=== PATIENT | male | born 1970 | race African-American/Black ===

== ENCOUNTER 2016-08-27 15:00 | Inpatient (IN) | payer OTHER ==
--- NOTE | ~2016-08-27 | PN ---
Unit #: [id number] #: [id number] Patient: MATTHIEU CARRIZALES [id number] [facility] [address] [place] [address] [id number] MR#: [id number] NAME: MATTHIEU CARRIZALES ROOM: 81 Age: 45 Sex: M Admission Date: 08/27/2016 : 1970 Attending Physician: Ari Ortiz M.D. Admitting Physician: Ari Ortiz M.D. Primary Care Physician: Primary Care Physician Tammy NICOLE NOTES DATE OF SERVICE: 08/28/2016 DISCUSSION Mr. Del Valle is a 45-year-old male, seen on 08/28/2016. The patient interviewed, chart reviewed, and obtained information from nursing staff. The patient compliant and cooperative. Mood is sad, dysphoric, flat affect, and guarded, but no thoughts of harming self or others. The patient is able to contract for safety. REVIEW OF SYSTEMS Complete review of systems unremarkable. MENTAL STATUS EXAMINATION General appearance, the patient dressed casually. Attention span and concentration, fair. Oriented in place and person. Mood and affect, sad and dysphoric. Speech, monotone. Thought process, concrete. The patient denied any thoughts of harming self or others. Recent and remote memory, poor. Insight and judgment, poor. DIAGNOSES Mood disorder, not otherwise specified; rule out major depressive disorder; and opioid use disorder, severe. ASSESSMENT AND PLAN Advised to continue with current medication and therapeutic protocol. If needed, consider further adjustment of medication. Dictated by... Damián Horta/claribel TD: 08/29/2016 17:08 JOB #: [id number] Unit #: [id number] #: [id number] Patient: MATTHIEU CARRIZALES [facility] PROGRESS NOTES Page 1 of 1 X Ari Ortiz MD PROGRESS NOTE
--- NOTE | ~2016-08-27 | HP ---
Unit #: [id number] #: [id number] Patient: MATTHIEU CARRIZALES [id number] [facility] [address] [place] [address] [id number] I MR#: [id number] NAME: MATTHIEU CARRIZALES ROOM: P181 Age: 45 Sex: M Admission Date: 08/27/2016 : 1970 Attending Physician: Ari Ortiz M.D. Admitting Physician: Ari Ortiz M.D. Primary Care Physician: Primary Care Physician No HISTORY AND PHYSICAL HISTORY OF PRESENT ILLNESS Matthieu is a 45-year-old male admitted on 08/28/2016 to [facility] for detox from heroin. PAST MEDICAL HISTORY None. PAST SURGICAL HISTORY None. SOCIAL HISTORY He smokes five cigarettes daily. No alcohol use. Does report daily use of heroin. He is currently single and living at [facility]. Also, is grieving the of his mother recently. FAMILY HISTORY Noncontributory. REVIEW OF SYSTEMS CONSTITUTIONAL: No fever or chills. HEENT: Denies any sore throat, ear pain or runny nose. CARDIOVASCULAR: Denies chest pain, irregular heart rhythm or palpitations. CHEST: Denies shortness of breath or cough. No hemoptysis. GASTROINTESTINAL: Denies nausea, vomiting, diarrhea or chronic constipation. ENDOCRINE: Denies history of increased thirst or urination. No recent significant weight loss or gain. GENITOURINARY: Denies dysuria, frequency, or hematuria. SKIN: Denies any rashes. HEMATOLOGIC: Denies history of increased bleeding or bruising. MUSCULOSKELETAL: Denies any hot, swollen joints. No generalized muscle pain. NEUROLOGIC: Denies problems with vision or speech. No frequent, severe headaches. No numbness, tingling or weakness in any extremities. Denies loss of bladder or bowel control. CURRENT MEDICATIONS None. ALLERGIES None. Unit #: [id number] #: [id number] Patient: MATTHIEU CARRIZALES PHYSICAL EXAMINATION GENERAL: Alert, oriented, in no acute distress. VITAL SIGNS: Blood pressure 113/75, heart rate 70. HEIGHT: 5 foot 10 inches. WEIGHT: 122 pounds. SKIN: Warm and dry without rash or lesion. HEENT: Normocephalic. TMs not viewed. Oral and nasal passages clear. Conjunctivae clear. PERRLA. EOMs intact. NECK: Supple without lymphadenopathy or thyromegaly. HEART: Regular rate and rhythm without murmur. LUNGS: Clear. ABDOMEN: Soft, nontender, without masses or hepatosplenomegaly. : Not done. EXTREMITIES: No evidence of cyanosis, clubbing or edema. Moves all without focal deficit. NEUROLOGICAL: Grossly within normal limits. Cranial Nerves: II: Visual woodruff are intact. III, IV AND : Extraocular movements are intact. Pupils are equal, round and reactive to light. V: Facial sensation is grossly normal. VII: Facial movements and expression are normal. VIII: Auditory acuity grossly intact. IX, X: Uvula is midline. Phonation is normal. XI: Patient shrugs shoulders and turns head normally. XII: Tongue protrudes in the midline. Sensory and Motor Function: Sensory and motor sensation is grossly normal. Motor: moves all extremities well. Coordination: Gait is normal. Deep Tendon Reflexes: Intact. IMPRESSION Psychiatric admission. RECOMMENDATIONS Psychiatric, per psychiatrist. MEDICAL: I see no contraindications to participating in facility's activities. MEDICAL PROGNOSIS Good. MEDICAL CONDITION Stable. Dictated by... Andreia Chan/orlando TD: 08/28/2016 23:33 JOB #: [id number] Unit #: [id number] #: [id number] Patient: MATTHIEU CARRIZALES HISTORY AND PHYSICAL Page 1 of 1 X PAOLO SWIFT APRN X HISTORY AND PHYSICAL
--- NOTE | ~2016-08-27 | PA ---
Unit #: [id number] #: [id number] Patient: MATTHIEU CARRIZALES [id number] [facility] [address] [place] [address] [id number] I MR#: [id number] NAME: MATTHIEU CARRIZALES ROOM: [facility] Age: 45 Sex: M Admission Date: 08/27/2016 : 1970 Date of Assessment: 08/28/2016 Attending Physician: Ari Ortiz M.D. Admitting Physician: Ari Ortiz M.D. Primary Care Physician: Primary Care Physician No PSYCHIATRIC ASSESSMENT INFORMANTS The patient reliability, fair informant and chart reliability, good. CHIEF COMPLAINT Detox and suicidal ideation. HISTORY OF PRESENT ILLNESS Mr. Del Valle is a 45-year-old male, presented with suicidal ideation with a plan to overdose using heroin. The patient reports that he has used 1 g of heroin daily, trying to kill himself due to his mom's recent . The patient also reported that he is severely depressed. The patient making comments about using a gun, but no longer have access to gun. The patient denied any homicidal ideation. Reports he has been using drugs and alcohol since age 10. Denied any delusion or hallucination. Currently, homeless. Currently, staying at [facility]. The patient reported tobacco use, age of onset 40; alcohol, age of onset 18; marijuana, age of onset 11; crack cocaine, age of onset 21; and opioid, age of onset 30. The patient reported longest period of sobriety 7 years. Last period of sobriety in 2001. History of blackout and withdrawal symptoms. The patient needing inpatient admission at this time for psychiatric stabilization. PAST PSYCHIATRIC HISTORY Unremarkable for any history of any previous treatment. FAMILY HISTORY AND SOCIAL HISTORY The patient currently homeless. Poor support system. No history of abuse. MEDICAL HISTORY Unremarkable for any chronic medical illness. Musculoskeletal; muscle strength and tone, no atrophy or abnormal movement. Gait normal. MEDICATION HISTORY None. ALLERGIES No known drug allergies. SUBSTANCE ABUSE HISTORY Please see above. REVIEW OF SYSTEMS HEENT: Eyes, clear. Ears, nose, mouth, and throat; clear. Unit #: [id number] #: [id number] Patient: MATTHIEU CARRIZALES CARDIOVASCULAR: Unremarkable. RESPIRATORY: Unremarkable. GI: Unremarkable. : Unremarkable. SKIN: Unremarkable. LYMPH NODE: Unremarkable. NEUROLOGIC: Unremarkable. ENDOCRINE: Unremarkable. HEMATOLOGIC: Unremarkable. ALLERGIC/IMMUNOLOGIC: Unremarkable. MUSCULOSKELETAL: Muscle strength and tone, no atrophy or abnormal movement. Gait normal. MENTAL STATUS EXAMINATION CONSTITUTIONAL: Measurement of vital signs; temperature 98.3, heart rate 48, respiratory rate 20, and blood pressure 104/59. Height 5 feet 10 inches and weight 172 pounds. GENERAL APPEARANCE: The patient dressed casually. No facial deformity noted. MUSCULOSKELETAL: Please see above. PSYCHIATRIC EXAMINATION Description of speech; regular rate, normal volume, normal articulation, and coherent. Description of thought process, goal directed. Description of association, intact. Description of abnormal psychotic thinking; the patient denied any hallucination or delusions, but depression and suicidal ideation, but able to contract for safety. Denied any homicidal ideation. Description of the patient's judgment: Concerning everyday activity, poor. Social situation, poor. Concerning psychiatric condition, poor. Complete mental status examination; oriented in time, place, and person. Recent and remote memory, fair. Attention span and concentration, fair. Language, able to name object and repeat phrases. Fund of knowledge, aware of current event and passive vocabulary intact. Mood and affect, sad and dysphoric. Insight and judgment, fair to poor. ASSETS AND LIABILITIES Assets, the patient is articulate and able to take care of his ADL. Liability, history of depression and substance abuse. ADMITTING DIAGNOSES Psychiatric: Major depressive disorder, recurrent, severe, F33.2 and opioid use disorder, severe, F11.20. Secondary diagnosis: Deferred. Medical diagnosis: None. Stressors: Psychosocial stressors. PSYCHIATRIC PLAN AND TREATMENT GOAL AND DISCHARGE PLAN 1. Advised to admit the patient on the inpatient unit. Provide safe, supportive, and structured environment. 2. Ordered labs; CBC, CMP, UA, and UDS. 3. Detox protocol and detox monitoring. 4. SP1 precaution. 5. Plan to consider medication such as SSRI if needed. The patient to attend all the programing on the inpatient unit, group therapy, individual Unit #: [id number] #: [id number] Patient: SOFIE,MATTHIEU therapy, and chemical dependency group. TREATMENT GOAL To attain euthymic mood, gain insight into his problem, and learn coping skills. DISCHARGE PLAN Plan to stabilize the patient and consider followup in outpatient program. ESTIMATED LENGTH OF STAY 3 to 5 days. Dictated by... Damián Horta/claribel TD: 08/28/2016 13:42 JOB #: [id number] PSYCHIATRIC ASSESSMENT Page 1 of 1 X Ari Ortiz MD PSYCHIATRIC ASSESSMENT
--- NOTE | ~2016-08-27 | DS ---
Unit #: [id number] #: [id number] Patient: MATTHIEU CARRIZALES [id number] [facility] [address] [place] [address] [id number] I MR#: [id number] NAME: MATTHIEU CARRIZALES ROOM: [facility] Age: 45 Sex: M Admission Date: 08/27/2016 : 1970 Discharge Date: 08/29/2016 Attending Physician: Ari Ortiz M.D. Primary Care Physician: Primary Care Physician No DISCHARGE SUMMARY REASON FOR ADMISSION Detox, suicidal ideation. DIAGNOSTIC STUDIES LABORATORY RESULTS: Unremarkable except total protein 5.8. HOSPITAL COURSE The patient was admitted to inpatient unit on 08/27/2016 and discharged on 08/29/2016. The patient's urine drug screen was positive for opioids. The patient was treated on the inpatient unit with group therapy, individual therapy, medication management, detox protocol. The patient responded well with the above modalities of treatment. Subsequently, the patient was discharged with a plan to follow up in outpatient program. DISCHARGE MEDICATIONS None. DISCHARGE DIAGNOSES Psychiatric: Major depressive disorder, recurrent, severe, F33.2; opioid use disorder, severe, F11.20. Secondary diagnosis: Deferred. Medical diagnosis: None. Stressors: Psychosocial stressors. DISCHARGE INSTRUCTIONS The patient to follow up in outpatient clinic as per social problems specialist. CONDITION ON DISCHARGE The patient was pleasant and cooperative. Denied any psychotic symptom or any suicidal ideation. PROGNOSIS Guarded. DIET AND ACTIVITY As tolerated. Dictated by... Ari Ortiz M.D. Unit #: [id number] #: [id number] Patient: MATTHIEU CARRIZALES SZC/modl TD: 08/30/2016 07:13 JOB #: [id number] DISCHARGE SUMMARY Page 1 of 1 X Ari Ortiz MD X DISCHARGE SUMMARY
[2016-08-28 12:00] LABS: URINE APPEARANCE CLEAR; URINE BILIRUBIN NEG (NEG); URINE BLOOD NEG (NEG); URINE COLOR YELLOW; URINE GLUCOSE NEG (NEG); URINE KETONE NEG (NEG); URINE LEUKOCYTE ESTERASE NEG (NEG); URINE NITRATE NEG (NEG); URINE PROTEIN NEG (NEG); URINE SPECIFIC GRAVITY 1.015 (1.003-1.035); URINE UROBILINOGEN 0.2 MG/DL (NEG)
[2016-08-28 12:00] LABS: BASOPHIL% 0.7 % (0-2.5); EOSINOPHIL# 0.6 X10e3 (0-0.7); EOSINOPHIL% 10.2 % (0.0-7.0); HEMATOCRIT 42.8 % (38.0-50.0); LYMPHOCYTE# 2.8 X10e3 (1.0-3.5); LYMPHOCYTE% 50.4 % (17.0-45.0); MEAN CELL VOLUME 89.3 FL (83-96); MEAN CORPUSCULAR HEMOGLOBIN 29.2 PG (28-34); MEAN CORPUSCULAR HGB CONC 32.7 g/dL (30-36); MEAN PLATELET VOLUME 8.6 FL (6.5-11.5); MONOCYTE# 0.5 X10e3 (0-1.0); NEUTROPHIL# 1.6 X10e3 (1.5-7.1); NEUTROPHIL% 28.7 % (40-75); RED BLOOD COUNT 4.79 X10e (3.90-5.60); RED CELL DISTRIBUTION WIDTH 12.9 % (11.0-15.5); WHITE BLOOD COUNT 5.5 X10e3 (4.0-10.5)
[2016-08-28 12:01] LABS: DIFF IND YES
[2016-08-28 12:17] LABS: ALBUMIN SERUM 3.4 g/dL (3.5-5.0); BILIRUBIN,TOTAL 1.1 mg/dL (0.2-2.0); CREATININE SERUM 1.2 mg/dL (0.6-1.4); GLOM FILT RATE Estimated 84.2 mL/min (>60); POTASSIUM 4.8 mmol/L (3.5-5.1); PROTEIN TOTAL SERUM 5.8 g/dL (6.0-8.3)
[2016-08-28 12:30] LABS: AMPHETAMINE NEG (NEG); BARBITURATES NEG (NEG); BENZODIAZEPINES NEG (NEG); COCAINE NEG (NEG); MARIJUANA NEG (NEG); OPIATES POS (NEG); TRICYCLIC ANTIDEPRESSANTS NEG (NEG); U METHADONE NEG (NEG)
[2016-08-28 12:53] LABS: PLATELET ESTIMATE NORMAL (NORMAL); RBC NORMAL YES
[2016-08-28 12:54] LABS: PLATELET COUNT 229 X10e3 (140-420); REACTIVE LYMPHS PRESENT
== END 2016-08-29 10:07 | DRG 885 ==
LOC: P1E 16:46
PROVIDERS: Psychiatry & Neurology Psychiatry
PROC: HZ2ZZZZ Detoxification Services for Substance Abuse Treatment (ICD-10-PCS; principal; 2016-08-27)
DX: F33.2 Major depressive disorder, recurrent severe without psychotic features (principal); F11.20 Opioid dependence, uncomplicated; R45.851 Suicidal ideations; Z59.0 Homelessness; F17.210 Nicotine dependence, cigarettes, uncomplicated; F39 Unspecified mood [affective] disorder
CPT/HCPCS: 80053; 80307; 81003; 85025; 86592

== ENCOUNTER 2016-09-26 12:39 | Inpatient (IN) | payer OTHER ==
--- NOTE | ~2016-09-26 | A ---
[facility] Nutrition Therapy DATE: 09/28/16 Patient: MATTHIEU HAMMERBY Physician: FELIX Address: [address] [place] [address] Room/Bed: [address], Zip: [place] [address] Admit Date: 09/26/16 Date of : [birth year] Height: 5 10 Weight: [id number] NUTRITIONAL ASSESSMENT: REASON: UNINTENTIONAL WEIGHT LOSS PATIENT ADMITTED FOR SI AND SUBSTANCE ABUSE PMH: NONE Anthropometrics: HT: 5'10", WT: 164#, BMI: 23.5, %IBW: 99 Labs: 09/27/16- ALL NUTRITIONAL LABS WNL Meds: REMERON, DESYREL Assessment: PATIENT IS A 45 Y/O MALE ADMITTED FOR SI AND SUBSTANCE ABUSE. PATIENT IS CURRENTLY EMPLOYED, IS ESSENTIALLY HOMELESS, SMOKES 1/2 PPD, HAS DAILY HEROIN AND COCAINE USE, AND OCCASIONAL MARIJUANA. PATIENT HAS A HX OF INPATIENT PSYCH AND CHEMICAL DEPENDENCY TREATMELT. HE D/C'D FROM THIS FACILITY 1 MONTH AGO. PER NEEDS ASSESSMENT PATIENT STATED A POOR APPETITE WITH AN UNKNOWN WEIGHT CHNAGE, AND HE SLEEPS AN AVERAGE OF 4HOURS/NIGHT. WEIGHT HX PER Qminder SHOWS AN 8# WEIGHT LOSS X 1 MONTH. NURSING REPORTS GOOD PO INTAKES. THERE ARE NO SKIN OR GI ISSUES NOTED ATT. NURSING NOTED THAT PATIENT REFUSED HIS MEDICATIONS YESTERDAY. HE IS CURRENTLY ON A REGULAR DIET WITH NO CAFFEINE, AND RECEIVES LARGE PORTION ENTREES. CURRENT PSYCH MEDS AND REMERON MAY CAUSE AN INCREASE IN WEIGHT AND APPETITE. PATIENT'S BMI IS WITHIN A HEALTHY RANGE AND HE IS 99% OF HIS IBW. Dx: UNINTENTIONAL WEIGHT LOSS R/T CURRENT CONDITION, DRUG USE AEB WEIGHT LOSS, NUTRITIONAL RISK POINT Intervention: REGULAR DIET, LARGE PORTIONS, MEDS PER MD, DETOX, PSYCH Monitoring, Evaluation and Goals: 1. ADEQUATE PO INTAKES >50% OF MEALS 2. PREVENT, CORRECT MICRO/MACRO NUTRIENT DEFICIENCIES 3. WEIGHT; MAINTAIN CURRENT WEIGHT, PREVENT FURTHER WEIGHT LOSS MONITOR: WEIGHTS, LABS, PO/FLUID INTAKES Recommendations: 1. CONTINUE REGULAR DIET WITH NO CAFFEINE AND LARGE PORTION ENTREES TOLERATED. 2. ENCOURAGE ADEQUATE PO AND FLUID INTAKES 3. OBTAIN WEIGHTS ROUTINELY (EVERY 3-4 DAYS) [facility] Nutrition Therapy DATE: 09/28/16 Patient: MATTHIEU CARRIZALES Physician: FELIX Address: [address] [place] [address] Room/Bed: [address], Zip: [place] [address] Admit Date: 09/26/16 Date of : [birth year] Height: 5 10 Weight: [phone] TO F/U PER PROTOCOL AND PRN R/T PATIENT MILDLY COMPROMISED Respectfully, LISS HERNANDEZ RD, LD Food and Nutritional Services [facility] cc: client file
--- NOTE | ~2016-09-26 | PN ---
Unit #: [id number] #: [id number] Patient: MATTHIEU JOSE [id number] [facility] [address] [place] [address] [id number] MR#: [id number] NAME: MATTHIEU JOSE ROOM: 78 Age: 45 Sex: M Admission Date: 09/26/2016 : 1970 Attending Physician: Robert Nettles M.D. Admitting Physician: Robert Nettles M.D. Primary Care Physician: Ariella Doctor Not In System [facility] PROGRESS NOTES DATE September 27, 2016 DISCUSSION Mr. Jose is a 45-year-old male, who was seen today and chart was reviewed and the case was discussed with the staff. He has been anxious, withdrawn, and rather seclusive to himself. Meanwhile, he has been cooperative with the treatment recommendations and he has been taking the medications and tolerating them fairly well. MENTAL STATUS EXAMINATION Middle-aged male, who was casually dressed with fair personal hygiene and appears to be in slight distress and discomfort. He was awake and alert with impaired attention and concentration. His mood is anxious and depressed with a congruent affect. His speech is slow and restricted in content. He reports having suicidal ideation but denies any homicidal ideations. His insight and judgment remain slightly impaired. TREATMENT PLAN 1. We will continue him on his current medications and treatment protocol, and will monitor his response to the medications, and make further adjustments as needed. 2. We will continue to followup. Dictated by... Damián Weaver/jaron TD: 09/28/2016 09:44 JOB #: [id number] Unit #: [id number] #: [id number] Patient: MATTHIEU JOSE [facility] PROGRESS NOTES Page 1 of 1 X Robert Nettles MD PROGRESS NOTE
--- NOTE | ~2016-09-26 | PN ---
Unit #: [id number] #: [id number] Patient: MATTHIEU JOSE [id number] [facility] [address] [place] [address] [id number] I MR#: [id number] NAME: MATTHIEU JOSE ROOM: [facility] Age: 45 Sex: M Admission Date: 09/26/2016 : 1970 Attending Physician: Robert Nettles M.D. Admitting Physician: Robert Nettles M.D. Primary Care Physician: Ariella Doctor Not In System [facility] PROGRESS NOTES DATE September 29, 2016 DISCUSSION Mr. Jose is a 45-year-old male, who was seen today and chart was reviewed and the case was discussed with the staff. He has been anxious, withdrawn, but has not shown any agitation or irritability, and has been cooperative with the treatment recommendations, and has been taking the medications and tolerating them fairly well with no reported side effects. MENTAL STATUS EXAMINATION Middle-aged male, who was casually dressed with fair personal hygiene and appears to be in no acute distress or discomfort. He was awake and alert with impaired attention and concentration. His mood is anxious with a congruent affect. He denies any suicidal or homicidal ideations. His insight and judgment remain slightly impaired. TREATMENT PLAN 1. We will continue him on his current medications and treatment protocol, and will monitor his response to the medications, and make further adjustments as needed. 2. We will continue to followup. Dictated by... Damián Weaver/jaorn TD: 09/29/2016 09:16 JOB #: [id number] Unit #: [id number] #: [id number] Patient: MATTHIEU JOSE [facility] PROGRESS NOTES Page 1 of 1 X Robert Nettles MD PROGRESS NOTE
--- NOTE | ~2016-09-26 | PN ---
Unit #: [id number] #: [id number] Patient: MATTHIEU JOSE [id number] [facility] [address] [place] [address] [id number] MR#: [id number] NAME: MATTHIEU JOSE ROOM: 78 Age: 45 Sex: M Admission Date: 09/26/2016 : 1970 Attending Physician: Robert Nettles M.D. Admitting Physician: Robert Nettles M.D. Primary Care Physician: Ariella Doctor Not In System [facility] PROGRESS NOTES DATE 09/28/2016 DISCUSSION Mr. Jose is a 45-year-old male who was seen today and chart was reviewed and case was discussed with the staff. He has been anxious, withdrawn though has not shown any agitation, irritability and has been cooperative with treatment recommendations and has been taking medications and tolerating them fairly well with no reported side effects. MENTAL STATUS EXAMINATION Middle-aged male who was casually dressed with fair personal hygiene and appears to be in no acute distress or discomfort. He was awake and alert on interaction with intact orientation. His mood was anxious and depressed with congruent affect. His speech is slow and goal-directed. He denies any suicidal or homicidal ideation. His insight and judgement remains slightly impaired. TREATMENT PLAN 1. Will continue on his current medications and treatment protocol. Will monitor his response to the medications and make further adjustments as needed. 2. Will continue to follow up. Dictated by... Damián Weaver/tessy TD: 09/28/2016 19:51 JOB #: [id number] Unit #: [id number] #: [id number] Patient: MATTHIEU JOSE [facility] PROGRESS NOTES Page 1 of 1 X Robert Nettles MD X PROGRESS NOTE
--- NOTE | ~2016-09-26 | HP ---
Unit #: [id number] #: [id number] Patient: MATTHIEU CARRIZALES [id number] [place] [address] [id number] I MR#: [id number] NAME: MATTHIEU CARRIZALES ROOM: P178 Age: 45 Sex: M Admission Date: 09/26/2016 : 1970 Attending Physician: Robert Nettles M.D. Admitting Physician: Robert Nettles M.D. Primary Care Physician: Generic Doctor Not In System HISTORY AND PHYSICAL HISTORY OF PRESENT ILLNESS Matthieu is a 45 year old admitted to [facility] because of his continued drug use. He was recently discharged from this facility after treatment for the same. The patient was seen and H and P dated 08/28/2016 was reviewed. This is current. No changes. Please see H and P dated 08/28/2016. Dictated by... Bryanna De La Cruz P.A.-C. for Damián Garduno/orlando TD: 09/27/2016 02:20 JOB #: [id number] HISTORY AND PHYSICAL Page 1 of 1 X Bryanna De La Cruz HISTORY AND PHYSICAL
--- NOTE | ~2016-09-26 | DS ---
Unit #: [id number] #: [id number] Patient: [facility]IEU JOSE [id number] [facility] [address] [id number] I MR#: [id number] NAME: MATTHIEU JOSE ROOM: 78 Age: 45 Sex: M Admission Date: 09/26/2016 : 1970 Discharge Date: 09/30/2016 Attending Physician: Robert Nettles M.D. Primary Care Physician: Generic Doctor Not In System DISCHARGE SUMMARY IDENTIFYNG DATA Mr. Jose is a 45-year-old , male, who is a resident of [place], [place] and is known to us from previous encounter and is self-referred to the hospital on a voluntary basis with the chief complaint of suicidal ideation and substance abuse. HISTORY OF PRESENT ILLNESS Please see initial psychiatric evaluation for details. PAST PSYCHIATRIC HISTORY Please see initial psychiatric evaluation for details. PAST MEDICAL HISTORY Please see initial psychiatric evaluation for details. HOSPITAL COURSE The patient was admitted to the Adult chemical Dependency and psychiatric unit at [facility] alex [place] and was oriented to the hospital environment, routine p.r.n. medications were initiated and started on the detox protocol, and was closely monitored. He was taking medications regularly and started taking them fairly well and was able to show a decent therapeutic response with improvement in depression and anxiety, and was denying any suicidal ideations, intent or plan and was not seen to be a danger to self or anyone else and was wanting to go home and was willing to continue treatment on outpatient basis and as such it was decided that he will be discharged and will continue treatment on outpatient basis. DISCHARGE DIAGNOSES [place] I Major depressive disorder, recurrent, moderate, without psychotic features. Opiate dependence, moderate in acute withdrawal. Cocaine dependence, moderate. [place] II [place] III None. [place] IV Moderate psychosocial stressors. [place] V DISCHARGE MEDICATIONS Remeron 15 mg at bedtime CONDITION AT DISCHARGE Stable. Unit #: [id number] #: [id number] Patient: MATTHIEU JOSE PROGNOSIS Fair. Dictated by... Damián Weaver/jaron TD: 09/30/2016 08:12 JOB #: [id number] DISCHARGE SUMMARY Page 1 of 1 X Robert Nettles MD DISCHARGE SUMMARY
--- NOTE | ~2016-09-26 | PA ---
Unit #: [id number] #: [id number] Patient: MATTHIEU JOSE [id number] [facility] [address] [place] [address] [id number] MR#: [id number] NAME: MATTHIEU JOSE ROOM: P178 Age: 45 Sex: M Admission Date: 09/26/2016 : 1970 Date of Assessment: 09/26/2016 Attending Physician: Robert Nettles M.D. Admitting Physician: Robert Nettles M.D. Primary Care Physician: Generic Doctor Not In System PSYCHIATRIC ASSESSMENT DATE OF SERVICE 09/26/2016. IDENTIFYING DATA Mr. Jose is a 45-year-old male, who is a resident of [place], [place], and is known to us from previous encounter, and was self-referred to the hospital on a voluntary basis. CHIEF COMPLAINT "Suicidal ideations and substance abuse." HISTORY OF PRESENT ILLNESS Mr. Jose is a 45-year-old male, who was dual diagnosed with mood disorder and substance abuse, who was self-referred to the hospital, stating that he is trying to get into a program and was recommend referring to detox first and reports that his mother recently and he has been having suicidal thoughts and getting the only thing it is hard to deal with stress and reports that he has been thinking of several ways to kill himself such as overdosing substances and using a gun to kill himself. He reports that he has thought about using a large amount of drugs last night to kill himself and tried to get help early this morning. Reports that he has been extremely and does report increasing depression, anxiety, irritability, restlessness, feelings of hopelessness and helplessness, and suicidal ideations, intent, and plan and as such, recommendation for inpatient level of care for safety and stabilization was made and the patient was transferred to us. SUBSTANCE ABUSE HISTORY The patient reports history of alcohol, cocaine, opioid abuse, and reports that he has been using heroin a gram daily by snorting and has been using cocaine over a gram by smoking it on daily basis. PAST PSYCHIATRIC HISTORY The patient has had history of inpatient psychiatric hospitalizations at [facility] and review of the medical records indicate currently he is not active in any treatment program, is not seeing a psychiatrist, and is not taking any psychotropic medications. PAST MEDICAL HISTORY No acute or chronic medical illnesses. ALLERGIES Unit #: [id number] #: [id number] Patient: MATTHIEU JOSE Penicillin. PERSONAL AND SOCIAL HISTORY A 45-year-old male, who reports that he is single, unemployed, and essentially homeless and has poor social support system. MENTAL STATUS EXAMINATION Middle-aged male, who was casually dressed with fair personal hygiene, appears to be in no acute distress or discomfort. He was awake and alert on interaction with intact orientation to time, place, and person. His mood was anxious and depressed with a congruent affect. His speech was slow and restricted in content. His thought processes were disorganized with some looseness of associations and flight of ideas and suicidal ideations. His insight and judgment remain significantly impaired. DIAGNOSTIC IMPRESSION Psychiatric: Major depressive disorder, recurrent, moderate, without psychotic features; cocaine dependence, moderate; opioid dependence, moderate. Medical: None. Stressors: Moderate psychosocial stressors. TREATMENT PLAN 1. The patient has presented with history of mood disorder and substance abuse and has been decompensating and will need inpatient hospitalization for safety and stabilization. We will start him back on his home medications. We will adjust the medications and monitor response. 2. Supportive therapy was provided to the patient. 3. Safe, structured, and nourishing environment will be provided. ESTIMATED LENGTH OF STAY 5 to 7 days. ABILITY TO HELP SELF Limited. WILLINGNESS TO HELP SELF The patient appears to be willing to help self. STRENGTHS 1. Communicative. 2. Cooperative. PROBLEMS 1. Chronic dysphoric symptoms. 2. Chronic chemical dependency. 3. Poor social support system. DISCHARGE CRITERIA This will be contingent upon the patient's ability to show resolution of his depression and anxiety and his ability to stay safe to himself, particularly after discharge from the hospital. Dictated by... Robert Nettles M.D. IAA/modl Unit #: [id number] #: [id number] Patient: MATTHIEU JOSE TD: 09/27/2016 16:22 JOB #: [id number] PSYCHIATRIC ASSESSMENT Page 1 of 1 X Robert Nettles MD PSYCHIATRIC ASSESSMENT
[2016-09-27 13:29] LABS: BASOPHIL# 0.1 X10e3 (0-0.3); BASOPHIL% 1.3 % (0-2.5); EOSINOPHIL# 0.4 X10e3 (0-0.7); HEMATOCRIT 45.8 % (38.0-50.0); HEMOGLOBIN 14.6 gm/dL (13.0-16.0); LYMPHOCYTE# 1.9 X10e3 (1.0-3.5); LYMPHOCYTE% 42.1 % (17.0-45.0); MEAN CELL VOLUME 90.6 FL (83-96); MEAN CORPUSCULAR HEMOGLOBIN 28.9 PG (28-34); MEAN CORPUSCULAR HGB CONC 31.9 g/dL (30-36); MEAN PLATELET VOLUME 9.6 FL (6.5-11.5); MONOCYTE# 0.5 X10e3 (0-1.0); NEUTROPHIL# 1.6 X10e3 (1.5-7.1); NEUTROPHIL% 35.6 % (40-75); PLATELET COUNT 213 X10e3 (140-420); RED BLOOD COUNT 5.05 X10e (3.90-5.60); WHITE BLOOD COUNT 4.5 X10e3 (4.0-10.5)
[2016-09-27 13:54] LABS: DIFF IND NO
[2016-09-27 14:00] LABS: ALBUMIN SERUM 3.6 g/dL (3.5-5.0); BILIRUBIN,TOTAL 1.5 mg/dL (0.2-2.0); BUN/CREATININE RATIO 12.72; CALCIUM SERUM 8.9 mg/dL (8.4-10.2); CREATININE SERUM 1.1 mg/dL (0.6-1.4); GLOM FILT RATE Estimated 93.5 mL/min (>60); POTASSIUM 4.6 mmol/L (3.5-5.1); PROTEIN TOTAL SERUM 6.2 g/dL (6.0-8.3)
[2016-09-28 09:55] LABS: URINE APPEARANCE CLEAR; URINE BILIRUBIN NEG (NEG); URINE BLOOD NEG (NEG); URINE COLOR YELLOW; URINE GLUCOSE NEG (NEG); URINE KETONE NEG (NEG); URINE LEUKOCYTE ESTERASE NEG (NEG); URINE NITRATE NEG (NEG); URINE PH 6.5 (5-8); URINE PROTEIN NEG (NEG); URINE SPECIFIC GRAVITY 1.017 (1.003-1.035)
[2016-09-28 10:37] LABS: AMPHETAMINE NEG (NEG); BARBITURATES NEG (NEG); BENZODIAZEPINES NEG (NEG); COCAINE NEG (NEG); MARIJUANA NEG (NEG); OPIATES NEG (NEG); TRICYCLIC ANTIDEPRESSANTS NEG (NEG); U METHADONE NEG (NEG)
== END 2016-09-30 09:40 | DRG 885 ==
LOC: P1E 12:39 → POF 12:39 → P1E 13:08
PROVIDERS: Psychiatry & Neurology Psychiatry
PROC: HZ2ZZZZ Detoxification Services for Substance Abuse Treatment (ICD-10-PCS; principal; 2016-09-26)
DX: F33.1 Major depressive disorder, recurrent, moderate (principal); F11.20 Opioid dependence, uncomplicated; F14.20 Cocaine dependence, uncomplicated; F41.9 Anxiety disorder, unspecified; Z59.0 Homelessness
CPT/HCPCS: 80053; 80307; 81003; 85025